=== PATIENT | female | born 1970 | race Caucasian/White ===

== ENCOUNTER → 2018-03-19 15:32 | Outpatient (CLI) | payer BC, SELFPAY ==
--- NOTE | 2018-03-19 15:39 | MM_ITS ---
MM Dig screening mamm BI w/CAD ORDERING PHYSICIAN : Melvin Vasquez MD PATIENT AGE: 47 years GENDER: Female COMPARISON: November 2014 bilateral diagnostic mammogram and ultrasound INDICATION: ITS.REASON: SCREENING TECHNIQUE: Standard CC and MLO images were obtained. Additional axillary cc views bilaterally along with cc nipple profile on right. R2 CAD reviewed. FINDINGS: The overall appearance and architecture breast appears similar to 2015 study. No dominant mass nor suspicious calcifications. Stable overall mildly inhomogeneous architecture. Areas of density in each breast seem to dissipate from one view to another which supports overlapping fibroglandular shadows and speak against any significant process, as does evident the lack of significant change since previous study.-This is most evident at the superior right breast on MLO view reflecting would appear to be fibroglandular elements towards upper-outer quadrant right breast. The Moderate scattered fibroglandular elements overall most evident towards upper outer quadrant both breast. Stable IMPRESSION: No new areas of significant concern on today's screening mammography. Stable Moderately dense breast tissue most evident towards upper outer quadrant of of both breast,- similar overall pattern since 2015 with no new areas of significant concern on mammography Based on this mammography study alone follow-up in one year the adequate Additional note.* Prior 2015 ultrasound addressed a palpable small nodular density . This appear to be a vague 1.2 cm solid nodule on the on 2015 ultrasound and should be addressed clinically.- If this palpable area persists or has progressed follow-up ultrasound to further evaluate this feature would be would be warranted. Today's mammogram itself however appears stable BI-RADS Category: 2 Benign Finding(s) RECOMMENDED FOLLOW-UP: 1YR 1 YEAR FOLLOW-UP * However consider follow-up breast ultrasound particularly if palpable area overlying chest wall at the periphery of breast towards 1:00 persist or has progressed. (A letter has been sent to the patient regarding results of the study.)
== END ==
PROVIDERS: Family Provider Family Medicine; PCP Family Medicine; Visit Provider Family Medicine
DX: Z12.31 Encounter for screening mammogram for malignant neoplasm of breast (principal)
CPT/HCPCS: 77067

== ENCOUNTER → 2018-04-17 09:07 | Outpatient (CLI) | payer BC, SELFPAY ==
--- NOTE | 2018-04-17 09:21 | US_ITS ---
US chest wall, US organ site (breast), right US biopsy guidance Ordering Physician: Melvin Vasquez MD Patient Age: 47 years: Female HISTORY: ITS.REASON: CHEST WALL MASS , at superior most aspect right breast TECHNIQUE: Ultrasound right breast and superior to the right breast with subsequent ultrasound-guided Feliz-Cut core biopsy FINDINGS AND PROCEDURE: ULTRASOUND at and superior to the Right breast. The Palpable area at the superior to the right breast, & chest wall inferior to the clavicle. This Palpable mass was scanned & correlates with a nearly 3.8 cm length as 1.4 cm AP x 2.6 cm transverse vaguely seen ovoid area just beneath the skin which similar echogenicity with adjacent subcutaneous fat.... & thus most likely reflects a focal lipoma on ultrasound. This feature was discussed with the patient. She& clinician desire a more definitive diagnosis of this slowly enlarging & progressing palpable area. Thus we proceeded with a core biopsy of such. These initial images also determined the best approach for access to perform aspiration biopsy of this nodule. Scanning by Dr. Dykes & MW ULTRASOUND-GUIDED FNA BIOPSIES superior to the right breast/ at right chest wall . sterile preparation as well as local skin, and cautious deeper placement of Xylocaine anesthetic. Under ultrasound guidance the first core biopsy obtained with 16-gauge Feliz-Cut biopsy needle. It currently was centrally area of concern on ultrasound centrally positioned within palpable area adequate sample obtained, . The second core biopsy was obtained with a 14-gauge Feliz-Cut needle position towards the medial margin of this mass/palpable area slightly different location small sample was obtained. Both samples were submitted together for histology evaluation. Both samples floating and the fixative PATHOLOGY REPORT/HISTOLOGY. Benign findings The findings are compatible with fatty tissue.. & Fibroadipose scar tissue, with fat necrosis included. No lymphoid tissue. No malignancy evident. Included Patient tolerated procedure well.. Minor discomfort second pass IMPRESSION: ...... 1. The palpable area was imaged with ultrasound if felt to be most likely a benign lipoma on the initial ultrasound survey.. It is is located in the subcutaneous fat layer superior to the right breast, & just inferior to the clavicle. 2. . Patient & Clinician requested definitive diagnosis since this area has enlarged.-. Thus 2 Feliz-Cut core biopsy passes performed at this palpable mass. HISTOLOGY reveals:. Benign findings. No malignancy. Benign features which would be compatible w/ fatty tissue/lipoma, noting fibroadipose scar tissue/fat necrosis included specimen consistent with such as well.
== END ==
PROVIDERS: Family Provider Family Medicine; PCP Family Medicine; Visit Provider Family Medicine
DX: N63.10 Unspecified lump in the right breast, unspecified quadrant (principal)
CPT/HCPCS: 10022; 76604; 76942

== ENCOUNTER → 2019-04-14 15:50 | Outpatient (CLI) | payer BC, SELFPAY ==
--- NOTE | 2019-04-14 15:55 | MM_ITS ---
PROCEDURE: MM DIG SCREENING MAMM BI W/CAD CLINICAL INDICATION: SCREENING There is no personal or family history of breast cancer COMPARISON: DMDB DIG MAMM-DX MELISSA from 11/26/2014 [facility] MM Dig screening mamm BI w/CAD from 03/19/2018 TECHNIQUE: Standard CC and MLO images were obtained. R2 CAD reviewed. FINDINGS: Moderate diffuse fibroglandular densities are seen in both breasts. There are 2 mole markers right breast. There is no suspicious lesion on the nose suspicious microcalcifications. IMPRESSION: Fibrofatty parenchyma with no suspicious lesion seen BI-RAD Category: 1 Negative FOLLOW-UP: 1YR 1 Year Follow-up (A letter has been sent to the patient regarding results of the study.) Dictated by: Dr. Son Aguilar MD 04/16/2019 10:[address] Son Aguilar MD in [place] 04/16/2019 10:50
== END ==
PROVIDERS: PCP Family Medicine; Visit Provider Physician Assistant
DX: Z12.31 Encounter for screening mammogram for malignant neoplasm of breast (principal)
CPT/HCPCS: 77067

== ENCOUNTER → 2020-09-14 13:22 | Outpatient (CLI) | payer BC, SELFPAY ==
--- NOTE | 2020-09-14 13:28 | MM_ITS ---
PROCEDURE: MM DIG SCREENING MAMM BI W/CAD Digital Breast Tomosynthesis Included CLINICAL INDICATION: SCREENING There is no personal or family history of breast cancer. COMPARISON: MG DMDB DIG MAMM-DX MELISSA from 11/26/2014 MG [facility] MM Dig screening mamm BI w/CAD from 03/19/2018 MG MM DIG SCREENING MAMM BI W/CAD from 04/14/2019 TECHNIQUE: Standard CC and MLO images and 3D Tomosynthesis was obtained. R2 CAD reviewed. FINDINGS: Mild scattered fibroglandular densities are seen throughout both breast. There is a mole marker right breast. CAD marking right breast was reviewed and appears to be unremarkable after reviewing the robbin images. There is no suspicious lesion and no suspicious microcalcifications. IMPRESSION: Fibrofatty parenchyma with no suspicious lesions seen BI-RAD Category: 1 Negative FOLLOW-UP: 1YR 1 Year Follow-up (A letter has been sent to the patient regarding results of the study.) Dictated by: Dr. oSn Aguilar MD 09/20/2020 15:18 Dr. Son Aguilar MD in [place] 09/20/2020 15:18
== END ==
PROVIDERS: PCP Family Medicine; Visit Provider Physician Assistant
DX: Z12.31 Encounter for screening mammogram for malignant neoplasm of breast (principal)
CPT/HCPCS: 77063; 77067

== ENCOUNTER 2021-03-27 09:02 | Emergency (ER) | payer BC, SELFPAY ==
[2021-03-27 09:05] VITALS: BP 119/78; PULSE 87; RESP 18; TEMP 36.8; O2SAT 96; BMI 33.5
--- NOTE | 2021-03-27 09:30 | HMH.EDUTC ---
[facility] [place] Clinical Impression: Sinusitis Qualifiers: Sinusitis location: unspecified location Chronicity: unspecified Qualified Code(s): J32.9 - Chronic sinusitis, unspecified Disposition: Home, Self-Care Condition on Discharge: Good Instructions: Sinusitis, DI for Sinusitis Additional Instructions: *Monitor Temp, Over the counter Motrin or Tylenol as directed/as needed Tylenol every 4 hours and Motrin every 6 hours (as long as your family doctor has told you that you can take it) for fever or pain. and straight to ER if unable to lower temp less than 101.0 after medication given *Warm salt water gargles may help to soothe the throat *Throat Lozenges *Warm fluids like tea with honey may help to soothe the throat *Sleep elevated *Humidifier/Vaporizer Follow up IMMEDIATELY for new or worsening symptoms or no Noticeable improvement over the next 48-72 hours. 911 for difficulty breathing or swallowing You were tested for today for COVID19 your test result should be back in the next 24-48 hours, you may call to the [facility] to see if your test results are back in the next 48 hours [phone] [facility] hours are 9am-9pm You was given a handout with instructions for Self Quarantine and Self isolation for while you wait on test results and what to do if they are positive If you are positive the Health Dept will be contacting you also Make sure to take your Vitamins Vit. C Vit D and Zinc if you can take them Prescriptions: Fluticasone Propionate [Flonase 50mcg nasal spray 16gm] 1 spr NS DAILY #1 ml Transmission Status: Pending to [facility] Benzonatate [Tessalon Perle 100mg Cap*] 100 mg PO TID PRN #15 cap PRN Reason: Cough Transmission Status: Pending to [facility] Azithromycin [Z-Wilbur 250mg Tab] 250 mg PO DIRECTED #6 tab Transmission Status: Pending to [facility] Referrals: Mulugeta Sebastian MD [Primary Care Provider] - As needed Forms: Work/School Release Time of Disposition: 09:39 Medical Decision Making - Varun Inquiry Pt receiving controlled substance: No Varun was queried for this patient: No Vital Signs: 03/27/21 09:05 Temperature 98.3 F Temperature Source Oral Pulse Rate [Right Brachial] 87 Respiratory Rate 18 Blood Pressure [Right Arm] 119/78 Blood Pressure Mean [Right Arm] 91 Blood Pressure Source [Right Arm] Automatic Cuff Blood Pressure Position [Right Arm] Sitting 02 Sat by Pulse Oximetry 96 Oxygen Delivery Method Room Air Orders (Tests/Meds): ORDERS Category Date Time Status Covid-19 Nasal PCR ([facility]) Routine Lab 03/27/21 09:19 Ordered [facility] UTC HPI - General Stated complaint: cough, Time Seen by Provider: 03/27/21 09:30 Mode of Arrival: Ambulatory Source of Information: Patient Limitations: No Limitations Description of Symptoms (Recalled from Triage Doc. by RN): PATIENT C/O COUGH, SNEEZING, HEADACHE AND SINUS DRAINAGE SINCE SATURDAY. HER WORK IS WANTING HER TO HAVE A COVID TEST HEENT Symptoms (Recalled from RN notes): Yes Resp Symptoms (Recalled from RN notes): Yes Skin Symptoms (Recalled from RN notes): No MS Symptoms (Recalled from RN notes): No Functional Status (Recalled from RN notes): WNL - History of Present Illness Provider Complaint: Patient states that she has been having sinus issues and since Saturday she has had worsening of sinus congestion and pressure, along with sneezing and cough State that she feels like it is moving into her chest States that her work wanted her to come and get tested for COVID States that she is fully vaccinated and not been around anyone that she is aware of with COVID - Related Data Home Medications Medication Instructions Recorded Confirmed hydrochlorothiazide 50 mg tablet PO 90 Days #90 11/11/17 08/20/19 ropinirole 2 mg tablet PO 90 Days #90 11/11/17 08/20/19 potassium chloride 20 mEq meq PO 08/20/19 08/20/19 tablet,extended release(part/cryst) ropinirole 0.25 mg tablet 0.25 mg PO DAILY tab
[2021-03-27 09:32] VITALS: BP 119/78; PULSE 87; RESP 18; TEMP 36.8; O2SAT 96
--- NOTE | 2021-03-28 12:03 | PC.NURSE ---
PT NOTIFIED OF POSITIVE COVID TEST RESULTS
== END 2021-03-27 09:40 | disposition home or self-care (01) ==
LOC: UTC 09:52
PROVIDERS: Emergency Provider Nurse Practitioner; PCP Family Medicine
DX: U07.1 COVID-19 (principal); J32.9 Chronic sinusitis, unspecified; I10 Essential (primary) hypertension; Z79.899 Other long term (current) drug therapy
CPT/HCPCS: 99202; G0463; U0003

== ENCOUNTER → 2021-08-29 11:39 | Outpatient (CLI) | payer BC, SELFPAY | PROVIDERS: PCP Family Medicine; Visit Provider Nurse Practitioner | DX: U07.1 COVID-19 (principal) | CPT/HCPCS: C9803; U0003; U0005 ==

== ENCOUNTER 2025-04-22 11:58 | Day surgery (SDC) | payer BC, SELFPAY ==
--- NOTE | 2025-04-20 17:52 | EXP.HP ---
History of Present Illness *Admission Date: 04/22/25 *Reason for visit:: Initial screening colonoscopy *History of present illness: Mrs. Shah is a 54-year-old female who is here for initial screening colonoscopy. The examination is deemed medically necessary for screening colonoscopy. The patient has been seen, interviewed and examined prior to the procedure by both myself and the anesthesia provider. [facility] Disclaimer: The information contained in this section may have been updated after the patient was seen, as this information can be updated by other users. Medical History (Updated 04/22/25 @ 12:13 by James Alves) Restless Diabetes Hypertension Family History (Updated 04/22/25 @ 12:15 by James Alves) Other No significant family history Social History (Updated 04/22/25 @ 12:15 by James Alves) Smoking Status: Former smoker alcohol intake: never substance use type: denies use current occupational status: other Travel in the last 8 weeks?: None household members: spouse housing: house Have you lived/traveled outside US in past 30 days?: No Contact w/someone who lives/traveled outside US past 30 days?: No Exposure to someone with infectious disease in past 14 days?: No Do you have a fever (greater than 100.4 F or 38 C)?: No Have you tested positive for COVID-19?: No Exposed to someone with COVID-19 in past 14 days?: No Do you have a sore throat?: No Do you have a cough?: No Do you have any weakness?: No Do you have any diarrhea?: No Are you experiencing any unusual bleeding?: No Do you have any muscle aches/pain?: No Do you have any abdominal pain?: No Are you experiencing loss of taste or smell?: No Other Medical History Have you received the Flu Vaccine for this season: No Have you received the Pneumonia Vaccine: No Review of Systems Review of Systems Review of systems (narrative): Negative *Cardiovascular Comments: Negative *Gastrointestinal Comments: Negative *Genitourinary Comments: Negative *Musculoskeletal Comments: Negative *Neurologic Comments: Negative Meds Home Medications and Allergies Home Medications ?Medication ?Instructions ?Recorded ?Confirmed ?Type hydrochlorothiazide 50 mg tablet 50 mg PO DAILY 90 days ##90 11/11/17 04/22/25 History ropinirole 2 mg tablet 2 mg PO DAILY 90 days ##90 11/11/17 04/22/25 History ropinirole 0.25 mg tablet 0.25 mg PO DAILY 08/20/19 04/22/25 History semaglutide 2 mg/dose (8 mg/3 mL) 2 mg SQ WEEKLY 04/22/25 04/22/25 History subcutaneous pen injector (Ozempic) New Prescriptions to Start Prescriptions: Allergies Allergy/AdvReac Type Severity Reaction Status Date / Time bee venom protein (honey bee) Allergy Verified 06/06/21 12:11 Exam *Routine HEENT Exam Head: Present normocephalic Eye: Present EOMI and PERRL ENT: Present mucous membranes moist *Routine Neck Exam Neck: Present supple *Routine Respiratory Exam Respiratory: Present CTA bilaterally *Routine Cardiovascular Exam Cardiovascular: Present RRR *Routine Abdominal Exam Abdominal: Present soft and normoactive bowel sounds; Absent tenderness *Routine Rectal Exam Rectal:: deferred *Routine Genitalia Exam Genitalia:: deferred *Routine Extremities Exam Extremities: Absent cyanosis, clubbing or edema *Routine Skin Exam Skin: Present warm; Absent rash *Routine Neurological Exam Neurological: Present alert and oriented X3 Assessment and Plan *Assessment and plan (1) Screening for colon cancer: Status: Acute Category: Medical Code(s): Z12.11 - Encounter for screening for malignant neoplasm of colon Plan A/P: 1. Screening for colon cancer is the preprocedural diagnosis. The patient will be anesthetized/sedated using MAC sedation. The patient has been seen and examined. Cardiac and lung assessment prior to the examination is stable. Proceed with planned screening colonoscopy.
[2025-04-22] MEDS: LACTATED RINGERS 1000ML 1,000 ML 50 ML IV (12:18)
[2025-04-22 12:19] VITALS: BP 154/93; PULSE 87; RESP 16; TEMP 36.6; O2SAT 99
[2025-04-22 12:24] LABS: POC Glucose,Bedside 90 gm/dL (70-110)
--- NOTE | 2025-04-22 13:15 | P.PCN_ITS ---
[facility] Procedure Note Date: 04/22/25 Time: 13:34 Procedure Note:: Colonoscopy Procedure Report: Colonoscopy with cold snare polypectomy Endoscopist: Matias Mora II, MD Referring physician: Mary Boss PA-C Date of Procedure: April 22, 2025 Equipment: Olympus [id number] adult colonoscope Sedation: MAC sedation Indication: Mrs. Shah is a 54-year-old female who is here for initial screening colonoscopy. She reports no abdominal pain, weight loss, change in her bowel habits or rectal bleeding. She reports no family history of colon cancer. Procedure: Prior to the procedure, a history and physical exam was performed, and patient's medications and allergies were reviewed. The risks, benefits and alternatives of the sedation and procedure were discussed with the patient. All questions were answered and informed consent was obtained. The patient was brought to the procedure room. Patient identification and proposed procedure were verified by the physician and the nurse. The patient was placed in a left lateral decubitus position and the scope was passed under direct vision. Throughout the procedure, the patient's blood pressure, pulse, and oxygen saturations were monitored continuously. The colonoscopy was accomplished without difficulty. The patient tolerated the procedure well. Findings: On digital rectal examination there was normal rectal tone. There were no external hemorrhoids. The colonoscope was introduced through the anal canal to the rectum and advanced to the cecum. The ileocecal valve and appendiceal orifice were identified. The scope was advanced a short distance into the ileum which appeared grossly normal. The scope was then withdrawn into the colon. There was a single cecal polyp (6 to 7 mm) which was removed via cold snare polypectomy. The remaining cecum, ascending and transverse colon and mucosa were grossly normal. There were scattered diverticuli throughout the descending and sigmoid colon (LEFT colon). The rectum itself was normal. Upon retroflexion within the rectum there were grade 1-2 internal hemorrhoids. The preparation was excellent throughout with [place] Preparation Score of 9. The cecal time was 12 minutes. Impression: 1. Cecal polyp (6 to 7 mm) 2. Left-sided diverticulosis 3. Grade 1-2 internal hemorrhoids Plan: I will follow-up the polyp histology and recommend repeat screening/surveillance colonoscopy again in 7 years. I would encourage psyllium bulking fiber supplementation on a maintenance basis.
[2025-04-22 13:37] VITALS: BP 96/49; PULSE 76; RESP 18; TEMP 36.3; O2SAT 96
[2025-04-22 13:47] VITALS: BP 105/51; PULSE 80; RESP 18; TEMP 36.3; O2SAT 100
[2025-04-22 13:57] VITALS: BP 96/58; PULSE 72; RESP 18; TEMP 36.3; O2SAT 96
[2025-04-22 14:07] VITALS: BP 118/72; PULSE 75; RESP 18; TEMP 36.3; O2SAT 100
== END 2025-04-22 14:11 | disposition home or self-care (01) ==
PROVIDERS: PCP Physician Assistant; Visit Provider Internal Medicine Gastroenterology
PROC: 0DJD8ZZ Inspection of Lower Intestinal Tract, Via Natural or Artificial Opening Endoscopic (ICD-10-PCS; CPT 45378; principal; 2025-04-22 14:00)
DX: Z12.11 Encounter for screening for malignant neoplasm of colon (principal); D12.0 Benign neoplasm of cecum; K57.30 Diverticulosis of large intestine without perforation or abscess without bleeding; K64.0 First degree hemorrhoids; K64.1 Second degree hemorrhoids; E11.9 Type 2 diabetes mellitus without complications; I10 Essential (primary) hypertension; Z87.891 Personal history of nicotine dependence; Z79.899 Other long term (current) drug therapy; Z79.85 Long-term (current) use of injectable non-insulin antidiabetic drugs; Z91.030 Bee allergy status
CPT/HCPCS: 45385; 82962; J2003; J2704; J7120